=== PATIENT | female | born 1960 | race Caucasian/White ===

== ENCOUNTER → 2019-03-16 | Outpatient (CLI) | payer MEDICARE, SELFPAY ==
[2019-02-24 12:29] VITALS: BMI 34.3
--- NOTE | 2019-03-17 08:38 | PFT ---
INTRODUCTION: The patient is a 58-year-old female that presents for pulmonary function studies secondary to a diagnosis of COPD. Respiratory therapy reports good patient effort. Bronchodilators were used during testing. INTERPRETATION: Forced expiration spirometry demonstrates the presence of a moderately severe large airways obstructive ventilatory defect. There was a partial, albeit nonsignificant response to aerosolized bronchodilators. Spirograms are of good quality and do not plateau indicating slow emptying of the lungs. Body plethysmography was performed and reveals an elevated TLC and RV, indicative of underlying hyperinflation and air-trapping. Diffusing capacity by single breath CO is severely reduced at 33% of predicted. IMPRESSION: Irreversible moderately severe large airways obstructive ventilatory defect with associated hyperinflation, air trapping and severe reduction in diffusing capacity.
== END | disposition home or self-care (01) ==
PROVIDERS: Referring Provider Internal Medicine Critical Care Medicine; Visit Provider Internal Medicine Critical Care Medicine
DX: J44.9 Chronic obstructive pulmonary disease, unspecified (principal)
CPT/HCPCS: 94060; 94726; 94729

== ENCOUNTER → 2019-03-25 | Outpatient (CLI) | payer MEDICARE, SELFPAY ==
[2019-02-24 12:29] VITALS: BMI 34.3
--- NOTE | 2019-03-25 17:45 | CT_ITS ---
STUDY: CT CHEST WITHOUT CONTRAST REASON FOR EXAM: Female, 58 years old. COPD. Possible fibrosis. RADIATION DOSAGE (If Supplied By Facility): DLP = ( 723.02 ) mGycm TECHNIQUE: Transaxial imaging was performed without the administration of intravenous contrast material. Coronal and sagittal reformatted images were created. Individualized dose optimization techniques were used for this CT. COMPARISON: None FINDINGS: Severe emphysematous changes with innumerable thin-walled pulmonary cysts, with distribution most prominent in the upper lobes bilaterally. Bilateral bronchiectasis is present. There is no consolidation. Mild scattered groundglass opacities are present in the lower lobes. The heart and pericardium are within normal limits. There is no thoracic lymphadenopathy. There is no evidence of thoracic aortic aneurysm. A large hiatal hernia is present. There is a right renal 1.2 cm low-density lesion, containing fat pixels. Colonic diverticulosis noted. There are no destructive osseous lesions. CT/Chest without Contrast IMPRESSION: Severe emphysematous changes with innumerable thin-walled cysts most prominent in the upper lobes, as well as bilateral bronchiectasis. 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 Mild bilateral lower lung zone groundglass opacities likely mild inflammatory process. 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 Large hiatal hernia. Electronically Signed: Yash Cummings, at 20:52 EDT Tel , Service support ,
== END | disposition home or self-care (01) ==
PROVIDERS: Referring Provider Internal Medicine Critical Care Medicine; Visit Provider Internal Medicine Critical Care Medicine
DX: J47.9 Bronchiectasis, uncomplicated (principal); N28.9 Disorder of kidney and ureter, unspecified; K44.9 Diaphragmatic hernia without obstruction or gangrene; F17.200 Nicotine dependence, unspecified, uncomplicated; G47.33 Obstructive sleep apnea (adult) (pediatric)
CPT/HCPCS: 71250; 95811

== ENCOUNTER → 2019-03-26 | Outpatient (CLI) | payer MEDICARE, SELFPAY ==
[2019-02-24 12:29] VITALS: BMI 34.3
[2019-03-26 07:29] VITALS: PULSE 79; PULSE 81; PULSE 86; PULSE 87; PULSE 89; PULSE 90; PULSE 91; O2SAT 85; O2SAT 89; O2SAT 90; O2SAT 91; O2SAT 92; O2SAT 94; O2SAT 98
--- NOTE | 2019-03-26 07:32 | CPS ---
Patient started testing on room air, SpO2 92%. By the 3rd minute SpO2 85%, placed patient on 2 lpm O2 for the rest of testing. Patient stated she wanted to figure out insurance coverage and speak to Dr. Servin before pursuing O2 setup at home. States she has follow up with Dr. Servin on 04/07/19.
--- NOTE | 2019-03-26 10:53 | PCM.PSN.6M ---
PSN 6 Minute Walk Test - 6 Minute Walk Test 6 Minute Walk Test: 6 Minute Walk Test PSN:6-Minute Walk Test Start: 03/26/19 07:28 Freq: Status: Active Protocol: [id number].6MINW Document 03/26/19 07:29 AVIS (Rec: 03/26/19 07:36 AVIS [id number]) 6 Minute Walk Test Date Performed 03/26/19 Time Performed 06:15 Height 5 ft 3 in Weight: 88.451 kg Weight in Pounds 195.[address]: Rosalio Servin Assistive device used: None Pre-test Oxygen Delivery Method Room Air Pulse Ox (%) 92 Pulse Rate (60-100 beats/min) 81 Dyspnea Gerson Scale (0-10) 1 Exertion Gerson Scale (6-20) 6 1st minute Oxygen Delivery Method Room Air Pulse Ox (%) 90 Pulse Rate (60-100 beats/min) 86 2nd minute Oxygen Delivery Method Room Air Pulse Ox (%) 89 Pulse Rate (60-100 beats/min) 87 3rd minute Oxygen Delivery Method Room Air Pulse Ox (%) 85 Pulse Rate (60-100 beats/min) 89 Dyspnea Gerson Scale (0-10) 3 4th minute Oxygen Flow Rate (L/min) (L/min) 2 Oxygen Delivery Method Nasal Cannula Pulse Ox (%) 94 Pulse Rate (60-100 beats/min) 89 5th minute Oxygen Flow Rate (L/min) (L/min) 2 Oxygen Delivery Method Nasal Cannula Pulse Ox (%) 91 Pulse Rate (60-100 beats/min) 90 6th minute Oxygen Flow Rate (L/min) (L/min) 2 Oxygen Delivery Method Nasal Cannula Pulse Ox (%) 91 Pulse Rate (60-100 beats/min) 91 Dyspnea Gerson Scale (0-10) 2 Exertion Gerson Scale (6-20) 14 Post-test Oxygen Flow Rate (L/min) (L/min) 2 Oxygen Delivery Method Nasal Cannula Pulse Ox (%) 98 Pulse Rate (60-100 beats/min) 79 Full Laps Walked 14 Partial Lap, Number of Tiles Walked 10 Total Distance Walked (ft) 836 03/26/19 07:32 Cardiopulmonary Services by Ning Sharpe Patient started testing on room air, SpO2 92%. By the 3rd minute SpO2 85%, placed patient on 2 lpm O2 for the rest of testing. Patient stated she wanted to figure out insurance coverage and speak to Dr. Servin before pursuing O2 setup at home. States she has follow up with Dr. Servin on 04/07/19. Initialized on 03/26/19 07:32 - END OF NOTE - Interpretation Interpretation: The patient was noted to be 92% on room air. Patient desaturated to 85% in the third minute of ambulation. Patient was placed on 2 L nasal cannula with improvement to 94%. Patient was able to complete 6 minutes of ambulation following addition of oxygen. In total, patient traveled 836 feet over the course of 6 minutes with no assistive devices and one break. These findings are consistent with a respiratory limitation exercise tolerance. - Recommendations Recommendations: Patient requires no supplemental oxygen at rest, but should be using 2 L nasal cannula with exertion.
== END | disposition home or self-care (01) ==
LOC: PSN 06:17
PROVIDERS: Referring Provider Internal Medicine Critical Care Medicine; Visit Provider Internal Medicine Critical Care Medicine
DX: J44.9 Chronic obstructive pulmonary disease, unspecified (principal)
CPT/HCPCS: 94618

== ENCOUNTER → 2019-04-07 | Outpatient (CLI) | payer MEDICARE, SELFPAY ==
[2019-02-24 12:29] VITALS: BMI 34.3
[2019-04-07 11:02] VITALS: BMI 34.2
== END | disposition home or self-care (01) ==
LOC: SL 12:11
PROVIDERS: Referring Provider Nurse Practitioner Acute Care; Visit Provider Nurse Practitioner Acute Care
DX: J47.9 Bronchiectasis, uncomplicated (principal)
CPT/HCPCS: 94667

== ENCOUNTER → 2020-06-15 11:57 | Outpatient (CLI) | payer MEDICARE, MEDICAID, SELFPAY ==
[2020-04-19 13:56] VITALS: BMI 34.2
== END ==
PROVIDERS: Referring Provider Internal Medicine Critical Care Medicine; Visit Provider Internal Medicine Critical Care Medicine
DX: J44.9 Chronic obstructive pulmonary disease, unspecified (principal)